=== PATIENT | female | born 1970 | race Hispanic/Latino ===

== ENCOUNTER 2024-12-24 14:51 | Emergency (ER) | payer BC, OTHER ==
[~2024-12-24] VITALS: Ht 170.2 cm; Wt 90.9 kg
[~2024-12-24 14:51] MED LIST: LISINOPRIL20 MG PO; METFORMIN HCL500 MG PO; METHYLPREDNISOLO4 M1 PO; PROMETHAZINE C PO; ZITHROMAX250 MG PO
[2024-12-24] MEDS ORDERED: SODIUM CHLORIDE 0.9% 1,000 ML IV PRN (17:30)
[2024-12-24 17:56] LABS: BASOPHILS 0.7 % (0-2); HEMATOCRIT 41.2 % (35.0-50.0); LYMPHOCYTES 30.7 % (24-44); MCH 30.6 (27-36); MONOCYTES 8.4 % (0-12); NEUTROPHILS 58.2 % (39-80); PLATELET COUNT 332 K/uL (140-440); RBC 4.58 M/ul (4.3-5.7); RDW 13.9 (10.5-15.0)
[2024-12-24] MEDS ORDERED: INSULIN LI100 UNIT/2 SUB-Q (18:08)
[2024-12-24 18:15] LABS: ALBUMIN 3.4 g/dL (3.4-5.0); ALBUMIN/GLOBULIN RATIO 0.87 (1.1-2.4); ANION GAP 9.8 (7-21); BILIRUBIN, TOTAL 0.3 mg/dL (0.2-1.0); BUN/CREATININE RATIO 15.78 (6.0-28.6); CALCIUM 9.5 mg/dL (8.5-10.1); CREATININE, SERUM 0.76 mg/dL (0.55-1.02); POTASSIUM 3.8 mmol/L (3.5-5.1); PROTEIN, TOTAL 7.3 g/dL (6.4-8.2)
[2024-12-24] MEDS ORDERED: METFORMIN HCL1000 MG PO (20:10)
[2024-12-24 20:45] VITALS: BP 141/79
== END 2024-12-24 20:45 | disposition home or self-care (01) ==
LOC: ED 14:51
PROVIDERS: Emergency Medicine
DX: E11.65 Type 2 diabetes mellitus with hyperglycemia (principal)
CPT/HCPCS: 36415; 80053; 82800; 83036; 85025; 96360; 99284-25; J7030